=== PATIENT | female | born 1950 | race Caucasian/White ===

== ENCOUNTER 2017-01-26 08:21 | Day surgery (SDC) | payer MEDICARE ==
[~2017-01-26 08:21] MED LIST: LACTATED RINGERS 1,000 ML IV SCH
[2017-01-26] MEDS ORDERED: LACTATED RINGERS 1,000 ML ONE (08:54)
[2017-01-26] MEDS ORDERED: IV START KIT ONE (08:54)
[2017-01-26] MEDS ORDERED: PROPOFOL 40 ML IV ONE (09:25)
[2017-01-26] MEDS ORDERED: FENTANYL 100 MCG/2 ML VIAL ONE (09:26)
[2017-01-26] MEDS ORDERED: LIDOCAINE 2% (PRES FREE) 5 ML VIAL ONE (09:26)
[2017-01-26 14:20] LABS: HELICOBACTER PYLORII DETECTION NEGATIVE (NEGATIVE)
--- NOTE | 2017-01-30 15:43 | SURGPATH ---
[facility] [address] [place] [id number] Patient Name: MORENA WEINSTEIN MR#: [id number] : 1950 Gender: F Specimen #: [id number] Collected: 01/26/2017 Received: 01/27/2017 Reported: 01/30/2017 Submitting Phys: YESSI BRADFORD Copy To Phys: [facility] SAM FOOTE Clinical History / Pre-Operative Diagnosis: Streeter's esophagus; Hemoccult positive stool; rule out gastritis and Streeter's Specimen Source / Surgical Procedure Performed: #1-antral biopsy; #2-esophageal biopsy at 38 cm Interpretation: 1. ANTRUM, BIOPSY: - ANTRAL AND BODY-TYPE MUCOSA WITHOUT PATHOLOGIC ABNORMALITY 2. ESOPHAGUS AT 30 CM, BIOPSY: - STREETER'S ESOPHAGUS, NEGATIVE FOR DYSPLASIA Electronically Signed Out Vazquez Mckeon M.D. Gross Description: #1 The specimen is received in a formalin filled container labeled with the patient's name and "antral biopsy". Two thomas biopsies are 0.3 and 0.5 cm. Totally embedded in cassette #1. #2 The specimen is received in a formalin filled container labeled with the patient's name and "esophageal biopsy at 38 cm". Two vitale biopsies are 0.2 and 0.4 cm. Totally embedded in cassette #2. Anam Kumari PTori Microscopic Description: 1. Sections show normal antral and body type mucosa. 2. Sections show glandular mucosa with focal intestinal metaplasia consistent with Streeter's esophagus. Dysplasia is not present. 1: 24395 2: 88522, 3126F K22.70
== END 2017-01-26 10:31 | disposition home or self-care (01) ==
LOC: SDC 08:21
PROVIDERS: ATTEND Internal Medicine Gastroenterology
PROC: 0DB78ZX Excision of Stomach, Pylorus, Via Natural or Artificial Opening Endoscopic, Diagnostic (ICD-10-PCS; principal; 2017-01-26)
PROC: 0DJD8ZZ Inspection of Lower Intestinal Tract, Via Natural or Artificial Opening Endoscopic (ICD-10-PCS; 2017-01-26)
DX: K22.70 Barrett's esophagus without dysplasia (principal); K29.70 Gastritis, unspecified, without bleeding; K29.80 Duodenitis without bleeding; R19.5 Other fecal abnormalities; K57.30 Diverticulosis of large intestine without perforation or abscess without bleeding; F17.210 Nicotine dependence, cigarettes, uncomplicated; J45.909 Unspecified asthma, uncomplicated; E11.9 Type 2 diabetes mellitus without complications; E78.5 Hyperlipidemia, unspecified; J44.9 Chronic obstructive pulmonary disease, unspecified; Z79.82 Long term (current) use of aspirin; Z79.899 Other long term (current) drug therapy